=== PATIENT | male | born 1935 | race Caucasian/White ===

== ENCOUNTER → 2016-06-30 | Outpatient (CLI) | payer OTHER ==
[~2016-06-30] VITALS: Ht 172.7 cm; Wt 75.7 kg
[~2016-06-30] MED LIST: ADVIL200 M3 PO; ASA81BEC PO; ASPIR 8181 MG PO; ASPIRIN EC81 M1 PO; AUGMENTIN 875875 M1 PO; CARDIZEM CD 18180 M3 PO; CARDIZEM CD240 MG PO; COLACE100 MG PO; ENDUR-ACIN250 MG PO; FLECAINIDE ACET50 M1 PO; HYDROCODON-ACE1 EAC7 PO; LEVOTHROID25 MCG PO; LEVOTHYROXIN0.025 MG PO; MIRALAX255 GM PO; NIACIN 100MG T100 M1 PO; PENICILLIN VK250 MG PO; PRAVASTATIN SOD20 MG PO; PROTONIX40 M2 PO; VITAMIN D2000 UNIT PO; XARELTO20 MG PO
--- NOTE | ~2016-06-30 | TEE ---
[facility] [place] [address] TRANSESOPHAGEAL ECHOCARDIOGRAM Name: CHANNING PELAEZ Room #: REG CL [facility]der[facility]an#: [id number] Admission: 06/30/16 Attend Phys: David Negrete MD Discharge: Date of : 33 Date of Service: 06/30/16 1656 Report #: [id number] THIS REPORT FOR: //name// APPROVED REPORT EXAM: Transesophageal echocardiogram with color flow Doppler Patient Location: Bedside Room #: 9 Blood Pressure: 124/76mmHg Other Information Study Quality: Excellent Indications Atrial Fibrillation Echo Enhancing Agent Indication: Rule out Shunt Agent/Amount Used: Agitated Saline 14 cc Procedure After obtaining informed consent, patient underwent transesophageal echo in the [employer]. Type of Sedation : Conscious Sedation Sedation was administered by Shanelle Og RN. Transesophageal probe was inserted and advanced into esophagus without difficulty by David Negrete MD, [facility]. Echo enhancement indication: R/O Septal defect. Echo enhancement agent administered: Agitated Saline The HENRY was performed without complications. Throughout the procedure, the blood pressure, pulse oximetry, cardiac rhythm, and rate were monitored. The patient tolerated the procedure without adverse effects. Recovery from conscious sedation was uneventful and vital signs were stable. Left Ventricle The left ventricle is normal size. There is normal left ventricular wall thickness. The left ventricular systolic function is normal. The left ventricular ejection fraction is within the normal range. LVEF is >55%. Right Ventricle [facility] [address] [place] [address] TRANSESOPHAGEAL ECHOCARDIOGRAM Name: CHANNING PELAEZ Room #: REG CL Elijah.#: [id number] Admission: 06/30/16 Attend Phys: David Negrete MD Discharge: Date of : 33 Date of Service: 06/30/16 1656 Report #: [id number] The right ventricle is normal size. The right ventricular systolic function is normal. Atria Left atrium is moderately dilated. 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 Interatrial septum is intact without evidence of ASD or PFO. Right atrium is mildly dilated. Aortic Valve Aortic valve is calcified. Mild aortic regurgitation. Mild to moderate aortic stenosis. Mitral Valve Minimal systoic bowing noted of the anterior leaflet without prolapse Mild mitral regurgitation. No evidence of mitral valve stenosis. Tricuspid Valve The tricuspid valve is normal in structure. Mild tricuspid regurgitation. Pulmonic Valve The pulmonary valve is normal in structure. There is no pulmonic valvular regurgitation. Great Vessels The aortic root is normal in size. Pericardium There is no pericardial effusion. <Conclusion> The left ventricular systolic function is normal. The left ventricular ejection fraction is within the normal range. Left atrium is moderately dilated. 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 Right atrium is mildly dilated. Aortic valve is calcified. Mild aortic regurgitation. Mild to moderate aortic stenosis. Minimal systoic bowing noted of the anterior leaflet without prolapse [facility] [address] [place] [address] TRANSESOPHAGEAL ECHOCARDIOGRAM Name: BENIGNOCHANNING JING Room #: REG [facility].#: [id number] Admission: 06/30/16 Attend Phys: David Negrete MD Discharge: Date of : 33 Date of Service: 06/30/161655 Report #: [id number] Mild mitral regurgitation. Interatrial septum is intact without evidence of ASD or PFO. <ELECTRONICALLY SIGNED> By: David Negrete MD, [facility] 06/30/161655 55 55 David Negrete MD, [facility] /INF
[2016-06-30 08:27] VITALS: BP 142/73
[2016-06-30 08:40] LABS: MCH 31.3 pg (26.0-34.0); MCV 92.2 fL (80.0-100.0); RBC 4.78 mil/uL (4.50-6.00); RDW 13.1 % (10.5-14.5); WBC 6.9 thou/uL (4.0-11.0)
[2016-06-30 08:48] LABS: CALCIUM 8.5 mg/dL (8.5-10.1); CREATININE 1.2 mg/dL (0.7-1.3); POTASSIUM 3.9 mmol/L (3.5-5.1)
[2016-06-30 08:53] LABS: ALBUMIN 4.2 g/dL (3.4-5.0); TOTAL BILIRUBIN 0.4 mg/dL (<0.1-1.0); TOTAL PROTEIN 7.1 g/dL (6.4-8.2)
[2016-06-30 08:54] LABS: INR 1.3; PROTIME 13.2 Seconds (9.3-11.4)
== END | disposition home or self-care (01) ==
LOC: CATH 08:02
PROVIDERS: Internal Medicine Cardiovascular Disease
DX: I35.2 Nonrheumatic aortic (valve) stenosis with insufficiency (principal); I51.7 Cardiomegaly; I25.10 Atherosclerotic heart disease of native coronary artery without angina pectoris; Z95.1 Presence of aortocoronary bypass graft; Z98.890 Other specified postprocedural states

== ENCOUNTER 2016-10-18 12:37 | Emergency (ER) | payer OTHER ==
[~2016-10-18] VITALS: Ht 167.6 cm; Wt 74.8 kg
[2016-10-18 12:40] VITALS: BP 130/85
[2016-10-18] MEDS ORDERED: SENOKOT-S1 TA1 PO (15:35)
[2016-10-18] MEDS ORDERED: CITRATE OF MAG296 ML PO (15:39)
== END 2016-10-18 16:25 | disposition home or self-care (01) ==
LOC: ER 12:37
DX: K56.41 Fecal impaction (principal); F10.99 Alcohol use, unspecified with unspecified alcohol-induced disorder; Z95.1 Presence of aortocoronary bypass graft; Z98.890 Other specified postprocedural states

== ENCOUNTER 2016-10-22 10:16 | Emergency (ER) | payer OTHER | END 2016-10-22 13:34 | disposition home or self-care (01) | LOC: ER 10:16 | DX: K59.00 Constipation, unspecified (principal); I48.91 Unspecified atrial fibrillation; Z95.5 Presence of coronary angioplasty implant and graft; Z98.890 Other specified postprocedural states ==

== ENCOUNTER → 2017-02-16 | Outpatient (CLI) | payer OTHER ==
[~2017-02-16] VITALS: Ht 172.7 cm; Wt 77.1 kg
[~2017-02-16] MED LIST changes: +ASPIR-LOW81 MG PO; +CITRATE OF MAG296 ML PO; +SENOKOT-S1 TA1 PO; +SYNTHROID25 MCG PO
--- NOTE | ~2017-02-16 | S ---
[facility] [place] [address] SURGICAL PATH RPT PROCEDURE Name: CHANNING PELAEZ Room #: REG [facility].#: [id number] Admission: 02/16/17 Date of : 33 Discharge: Report #: [id number] Path Case #: [id number] PATHOLOGY REPORT COLLECTION DATE: 02/16/2017 RECEIVED DATE: 02/16/2017 SUBMITTING PHYS: Dr. Diony Montenegro OTHER PHYS: Dr. Abilio Brian SPECIMEN(S) RECEIVED: A.Cecal polyp B.Transverse colon polyp * * * * * * * * * * * * FINAL DIAGNOSIS: A. Colonic mucosa "cecal polyp biopsy": - Fragments of tubular adenoma. - There is no evidence of high grade dysplasia or malignancy. B. Colonic mucosa "transverse colon polyp biopsy": - Tubular adenoma. - There is no evidence of high grade dysplasia or malignancy. (SHA:mm; 02/17/2017) PATHOLOGIST: Jarrod Schrader M.D. REPORT ELECTRONICALLY SIGNED BY: Jarrod Schrader M.D. DATE/TIME: 02/17/2017 13:06 * * * * * * * * * * * * GROSS PATHOLOGY: A. Received in formalin labeled "Channing Pelaez, BX of cecal polyp," are 2 segments of gutierrez soft tissue measuring 0.5 x 0.2 x 0.2 cm in aggregate dimensions and ranging from 0.2 to 0.3 cm in maximum dimension. The specimen is submitted entirely in cassette A1. B. Received in formalin labeled "Channing Pelaez, BX of polyp transverse colon," is a segment of gutierrez soft tissue measuring 0.6 cm in maximum dimension. The specimen is submitted entirely in cassette B1. (TSD; 02/16/2017) CLINICAL HISTORY: Pre-OP DX: Heme positive stools Post -OP DX: Colon polyp INITIAL CPT CODE(S): A; [address] [address] SURGICAL PATH RPT PROCEDURE Name: CHANNING PELAEZ Room #: REG [facility].#: [id number] Admission: 02/16/17 Date of : 33 Discharge: Report #: [id number] Path Case #: [id number]; [id number] Professional services performed by [facility] at [address] , [place] [address] Technical services performed by [facility] at [address] [place] [address], [place] [address]. [facility] [address] [place] [address] PHONE: [phone] DIRECTOR: Jonathan Gallardo M.D. * * * END OF REPORT * * *
--- NOTE | ~2017-02-16 | P ---
[facility] [place] [address] PROCEDURE REPORT Name: CHANNING PELAEZ Room #: REG [facility] Trevor#: [id number] Admission: 02/16/17 Attend Phys: Diony Norris Discharge: Date of : 33 Report #: [id number] THIS REPORT FOR: //name// CC: Diony Brian DATE OF SERVICE: 02/16/2017 PROCEDURE PERFORMED: Colonoscopy with biopsies. HISTORY OF PRESENT ILLNESS: The patient is an 81-year-old male with routine a Hemoccult positive stool. He denies any obvious bright red blood per rectum or melena. No abdominal pain. Last colonoscopy was reportedly approximately 5 years ago. No family history of colon cancer. No history of anemia per the patient. DESCRIPTION OF PROCEDURE: The risks and benefits of the procedure were explained to the patient, those risks including but not limited to bleeding, perforation and the risk of sedation. He understood these risks and gave informed consent. Sedation was given using propofol per anesthesia. Next, a digital rectal exam was initially performed, which was normal. Next, using a standard SlapVidinon colonoscope, the scope was placed in the patient's anus and advanced under direct vision to the cecum. The overall prep was excellent. In the cecum, there was a 3 mm sessile polyp, this was removed with cold forceps. Otherwise normal. The ileocecal valve was normal. Ascending colon was normal. In the transverse colon, a 4 mm sessile polyp was noted, also removed with cold forceps. Descending and sigmoid colon were normal. The rectal mucosa was normal. On retroflexion, small nonbleeding internal hemorrhoids were noted, otherwise normal colonoscopy. The scope was then withdrawn and the procedure terminated. The patient tolerated the procedure well. IMPRESSION: 1. Two small colonic polyps. 2. Small internal hemorrhoids. 3. Otherwise, normal colonoscopy. RECOMMENDATIONS: 1. Await biopsy results. 2. There was no evidence of bleeding on exam today. If the patient is not anemic, would recommend monitoring. [facility] [address] [place] [address] PROCEDURE REPORT Name: CHANNING PELAEZ Room #: REG SOPHY Murray#: [id number] Admission: 02/16/17 Attend Phys: Diony Norris Discharge: Date of : 33 Report #: [id number] Thank you for allowing me to participate in his care. By: 1209 1824 Diony Montenegro MD /nt
== END | disposition home or self-care (01) ==
LOC: GI 09:41
DX: D12.0 Benign neoplasm of cecum (principal); D12.3 Benign neoplasm of transverse colon; K64.8 Other hemorrhoids; I11.9 Hypertensive heart disease without heart failure; I25.10 Atherosclerotic heart disease of native coronary artery without angina pectoris; E78.5 Hyperlipidemia, unspecified; I48.91 Unspecified atrial fibrillation; E03.9 Hypothyroidism, unspecified; Z95.1 Presence of aortocoronary bypass graft; Z98.41 Cataract extraction status, right eye; Z98.42 Cataract extraction status, left eye; Z98.890 Other specified postprocedural states; Z79.899 Other long term (current) drug therapy; Z79.82 Long term (current) use of aspirin
CPT/HCPCS: 62110; 62900